=== PATIENT | male | born 1940 | race Caucasian/White ===

== ENCOUNTER 2019-11-12 08:05 | Emergency (ER) | payer BC ==
[~2019-11-12] VITALS: Ht 180.3 cm; Wt 90.7 kg
--- NOTE | 2019-11-12 08:10 | NUR ---
DR AKERS AT BEDSIDE FOR EVAL.
[2019-11-12] MEDS ORDERED: IV NS 0.9% 1,000 ML BAG IV ONE (08:30)
--- NOTE | 2019-11-12 08:30 | NUR ---
CALLED LAB FOR BLOOD DRAW.
[2019-11-12 08:34] LABS: BASOPHILS % (AUTO) 0.3 % (0.0-2.0); EOSINOPHILS % (AUTO) 1.3 % (0.0-6.0); HEMATOCRIT 41 % (39-51); HEMOGLOBIN 13.6 g/dL (13.5-17.5); LYMPHOCYTES # (AUTO) 4.3 /CMM (0.8-4.8); LYMPHOCYTES % (AUTO) 32.6 % (20.0-44.0); MEAN CORPUSCULAR HGB CONC 33 g/dl (31.0-36.0); MEAN CORPUSCULAR VOLUME 94 fL (80-96); MONOCYTES # (AUTO) 0.8 /CMM (0.1-1.30); MONOCYTES % (AUTO) 6.4 % (2.0-12.0); NEUTROPHILS # (AUTO) 7.7 /CMM (1.8-8.9); NEUTROPHILS % (AUTO) 59.4 % (43.0-81.0); PLATELET COUNT (AUTO) 259 /CMM (150-450); RED BLOOD CELL COUNT(AUTO) 4.39 MIL/uL (4.5-6.0)
[2019-11-12 08:40] LABS: CALCIUM, SERUM 8.9 mg/dL (8.5-10.1); CARBON DIOXIDE 27 mmol/L (21-32); CHLORIDE 104 mmol/L (98-107); CREATININE 1.5 mg/dL (0.6-1.3); GLUCOSE 147 mg/dL (74-106); POTASSIUM 3.7 mmol/L (3.5-5.1); SODIUM SERUM 140 mmol/L (136-145); UREA NITROGEN, BLOOD 30 mg/dL (7-18)
--- NOTE | 2019-11-12 08:44 | NUR ---
RADIOLOGY AT BEDSIDE FOR CHEST XRAY.
[2019-11-12 09:09] LABS: APPEARANCE,URINE Clear (CLEAR); BILIRUBIN,URINE Negative (NEGATIVE); BLOOD, URINE Negative Ery/uL (NEGATIVE); COLOR,URINE Yellow (YELLOW); KETONES,URINE Negative (NEGATIVE); LEUKOCYTE ESTERASE ,URINE Negative (NEGATIVE); NITRITE, URINE Negative (NEGATIVE); PH,URINE 6.5 (5.0-8.0); PROTEIN,URINE Negative (NEGATIVE); UGLUCOSE Negative (NEGATIVE); UROBILINOGEN,URINE 0.2 EU/dL (0.2)
--- NOTE | 2019-11-12 10:05 | NUR ---
Patient discharged to home in stable condition. Written and verbal after care instructions given. Patient verbalizes understanding of instruction.IV removed. Catheter intact and site benign. Pressure and 4x4 applied to site. No bleeding noted.
[2019-11-12 10:06] VITALS: BP 138/65
== END 2019-11-12 10:07 | disposition home or self-care (01) ==
LOC: ER 08:07
DX: J18.9 Pneumonia, unspecified organism (principal); R55 Syncope and collapse; I10 Essential (primary) hypertension; Z98.890 Other specified postprocedural states; Z60.2 Problems related to living alone
CPT/HCPCS: 36415; 71045; 80048; 81001; 84484; 85025; 87635; 87804 ×2; 93005 ×2; 96360; 99285; J7030; 81000-TC; U0002